=== PATIENT | male | born 1980 | race African-American/Black ===

== ENCOUNTER 2018-10-14 19:35 | Emergency (ER) | payer OTHER ==
--- NOTE | 2018-10-14 20:22 | EDPHY ---
H & P Time Seen by Provider: 10/14/18 19:46 HPI/ROS: This patient reports a feeling of anxiety including some paresthesias in his hands and legs intermittently over the past 2 weeks since his delivered twin boys 6 weeks premature you're still in the hospital. He denies any clear exacerbating factors for symptoms. Noted that he had hypertension at home as well with a diastolic pressure of over 100. Due to the combination of his somatic symptoms and hypertension he came in for evaluation. He drove here by private vehicle. ROS: Constitutional: No fevers or chills or significant fatigue. HEENT: No complaints Neuro: No headache or confusion. No focal weakness. Pulmonary: No cough or significant dyspnea Cardiovascular: No heart palpitations leg swelling calf pain or chest pain GI: No nausea vomiting Integumentary: No Diaphoresis : No flank pain or hematuria Psychiatric: He still sleeping without significant insomnia. He denies any racing thoughts or other psychiatric symptoms besides the situational anxiety 10 point review of symptoms is performed and otherwise negative with exception of pertinent positives and negatives listed in HPI and ROS Past Medical/Surgical History: He has had hypertension on a previous visit here in 2013 but did not started on antihypertensives Family history: Mother has hypertension Social History: He does not drink alcohol use drugs. He works at [employer]. He is and has 5 children Smoking Status: Never smoked Physical Exam: General Appearance: Pleasant black male Alert, no distress. Eyes: Pupils equal and round no pallor or injection. Optic fundi are normal bilaterally no papilledema or hemorrhage ENT, Mouth: Mucous membranes moist. Respiratory: There are no retractions, lungs are clear to auscultation. Cardiovascular: Regular rate and rhythm. No murmur gallop rub. No peripheral edema Gastrointestinal: Abdomen is soft and nontender, no masses, bowel sounds normal. Neurological: GCS 15 with no focal deficits Skin: Warm and dry, no rashes. Musculoskeletal: Neck is supple nontender. Extremities are symmetrical, full range of motion. Psychiatric: Mild anxiety but no pressured speech. DIFFERENTIAL DIAGNOSIS: After history and physical exam differential diagnosis was considered for anxiety, hypertension, hypertensive urgency, rule out hypertensive emergency Constitutional: Initial Vital Signs Temperature (C) 36.5 C 10/14/18 19:40 Heart Rate 70 10/14/18 19:40 Respiratory Rate 16 10/14/18 19:40 Blood Pressure 154/112 H 10/14/18 19:40 O2 Sat (%) 97 10/14/18 19:40 O2 Delivery Mode Room Air Allergies/Adverse Reactions: No Known Allergies Allergy (Verified 02/14/14 16:03) Home Medications: Medication Instructions Recorded NO HOME MEDICATIONS 09/29/11 Hydrochlorothiazide [HCTZ (*)] 25 mg PO DAILY #30 tab 10/14/18 MDM/Departure - MDM Diagnostics: 12 lead EKG performed shortly after arrival at 8:07 p.m. Reveals sinus rhythm at 72 Intervals: Normal throughout ST segments: Normal throughout Overall assessment- normal EKG POC urine is also normal ED Course/Re-evaluation: Discussion: Patient with hypertension without evidence of end-organ injury. He has situational anxiety attributable to of premature twin boys. I counseled regarding this in some detail. Will plan to start him on hydrochlorothiazide have follow-up with primary care physician within the week. He understands need to return emergency department should she develop any significant worsening of symptoms despite treatment plan - Depart Disposition: Home, Routine, Self-Care Clinical Impression: Hypertensive urgency, Situational anxiety Condition: Good Instructions: Heart Healthy Diet (ED), Chronic Hypertension (ED) Additional Instructions: Diagnoses: 1. Hypertension 2. Anxiety-situational Plan: Hydrochlorothiazide antihypertensive to bring in blood pressure. Continue regular exercise. Daily relaxation such as hot bath, or other for 20 min or more per day Follow up with primary care physician sometime within the next 4-7 days for recheck of your blood pressure while on the hydrochlorothiazide. Return to the emergency department for any significant worsening despite treatment plan Prescriptions: Hydrochlorothiazide [HCTZ (*)] 25 mg PO DAILY #30 tab Referrals: Yvan Tohmpson, [Primary Care Provider] - As per Instructions
[2018-10-14 20:38] VITALS: BP 150/102
--- NOTE | 2018-10-16 07:25 | CPEKG ---
Test Reason : OPEN Blood Pressure : / mmHG Vent. Rate : 072 BPM Atrial Rate : 072 BPM P-R Int : 197 ms QRS Dur : 101 ms QT Int : 399 ms P-R-T Axes : 067 009 027 degrees QTc Int : 437 ms Sinus rhythm Confirmed by Giovani Oscar ([id number]) on 10/16/2018 7:24:40 AM Referred By: Confirmed By:Giovani Oscar
== END 2018-10-14 20:55 | disposition home or self-care (01) ==
LOC: CED 19:35
DX: I10 Essential (primary) hypertension (principal); F41.1 Generalized anxiety disorder